=== PATIENT | female | born 1985 | race Caucasian/White ===

== ENCOUNTER 2023-10-01 13:09 | Outpatient (CLI) | payer BC | END 2023-10-01 13:10 | disposition home or self-care (01) | LOC: CSHULT 13:09 | PROVIDERS: ATTEND Obstetrics & Gynecology | DX: E04.9 Nontoxic goiter, unspecified (principal); E04.2 Nontoxic multinodular goiter | CPT/HCPCS: 76536 ==

== ENCOUNTER 2024-10-07 09:21 | Outpatient (CLI) | payer BC | END 2024-10-07 09:22 | disposition home or self-care (01) | LOC: CSHULT 09:21 | PROVIDERS: ATTEND Family Medicine | DX: E04.1 Nontoxic single thyroid nodule (principal) | CPT/HCPCS: 76536 ==